=== PATIENT | male | born 1960 | race Two or more races ===

== ENCOUNTER 2020-11-22 08:48 | Emergency (ER) | payer OTHER ==
[~2020-11-22] VITALS: Ht 170.2 cm; Wt 81.6 kg
== END 2020-11-22 14:36 | disposition designated cancer center or children's hospital (05) ==
LOC: ER 08:48
DX: S61.221A Laceration with foreign body of left index finger without damage to nail, initial encounter (principal); S62.631A Displaced fracture of distal phalanx of left index finger, initial encounter for closed fracture; W45.8XXA Other foreign body or object entering through skin, initial encounter; Y93.89 Activity, other specified; Y92.89 Other specified places as the place of occurrence of the external cause; Y99.8 Other external cause status; Z03.818 Encounter for observation for suspected exposure to other biological agents ruled out